=== PATIENT | male | born 1995 | race Caucasian/White ===

== ENCOUNTER 2020-09-23 08:44 | Day surgery (SDC) | payer BC ==
[2020-09-15 15:46] VITALS: BMI 19.2
[~2020-09-23 08:44] MED LIST: LACTATED RINGERS 1,000 ML IV SCH; LIDOCAINE 1% (10MG/ML) FOR IV START INTRADERMA PRN
[2020-09-23 09:32] VITALS: TEMP 98.2
[2020-09-23] MEDS ORDERED: LIDOCAINE 1% INJ 10MG/ML (20 ML MDV) ONE (10:29)
[2020-09-23] MEDS ORDERED: PROPOFOL 10 MG/ML 20 ML VIAL IV ONE (10:29)
[2020-09-23] MEDS ORDERED: GLYCOPYRROLATE 0.2 MG/ML 2 ML VIAL ONE (10:29)
--- NOTE | 2020-09-23 10:56 | P.PCN ---
Date of Procedure: 09/23/20 Description of Procedure: BRIEF HISTORY: Patient is a 25-year-old male with a history of eosinophilic esophagitis presenting for outpatient EGD for evaluation in the burning esophagus, GERD, heartburn. The patient reports a known history of eosinophilic esophagitis and has had 2 EGDs in the past. He reports recent flaring of symptoms secondary to acidic foods. PROCEDURE PERFORMED: Esophagogastroduodenoscopy with biopsy and [id number] balloon dilation. PREOPERATIVE DIAGNOSIS: Burning esophagus, heartburn, GERD, history of eosinophilic esophagitis. ESTIMATED BLOOD LOSS: Minimal. IV sedation per anesthesia. PROCEDURE: After informed consent was obtained, the patient was brought into the endoscopy unit. IV sedation was administered by Anesthesia under continuous monitoring. Initially the Olympus GIF-190 video endoscope was inserted into the mouth. Esophagus intubated without any difficulty. It was gradually advanced into the stomach and duodenum and carefully examined. The bulb and the second part of the duodenum appeared normal, with biopsies taken to rule out celiac sprue. The scope at this time was withdrawn to the stomach, adequately insufflated with air, and upon careful examination, mucosa of the antrum, body, cardia and the fundus appeared normal, with biopsies taken to rule out Helicobacter pylori infection. The scope was then withdrawn into the esophagus. The GE junction was located at 38 cm from the incisors. The esophagus appeared normal, except for a benign-appearing distal esophageal stricture sequentially dilated with a rfetlir-zlt-rmebo balloon dilator up to 15 mm16.5 mm18 mm. Mid esophageal biopsies were also taken given history of eosinophilic esophagitis. There were no erosions or ulcerations seen and the patient tolerated the procedure well. IMPRESSION: 1. Benign distal esophageal stricture sequentially dilated with a throu vu-bok-jnaqf balloon dilator. 2. Eosinophilic esophagitis. 3. Biopsies of the duodenum, antrum body and midesophagus. RECOMMENDATIONS: The findings of this examination were discussed with the patient in his family. Okay to resume diet. Okay to resume medications. Continue Prilosec therapy. Await pathology from biopsies. Follow up with GI service as needed.
[2020-09-23 11:22] VITALS: BP 100/59; PULSE 61; RESP 20
== END 2020-09-23 11:53 | disposition home or self-care (01) ==
LOC: ORWHC2ENDO 08:44
PROVIDERS: ATTEND Internal Medicine
DX: K21.00 Gastro-esophageal reflux disease with esophagitis, without bleeding (principal); K22.2 Esophageal obstruction; K29.50 Unspecified chronic gastritis without bleeding; Z87.19 Personal history of other diseases of the digestive system; Z98.890 Other specified postprocedural states; Z79.899 Other long term (current) drug therapy
CPT/HCPCS: 88305; 43239; 43249; J2001; J2704; C1726